=== PATIENT | female | born 1940 | race Caucasian/White ===

== ENCOUNTER → 2021-01-16 | Outpatient (CLI) | payer OTHER | END | disposition home or self-care (01) | LOC: OIH 17:23 | PROVIDERS: ATTEND Internal Medicine Cardiovascular Disease | DX: Z13.6 Encounter for screening for cardiovascular disorders (principal) | CPT/HCPCS: 75571 ==

== ENCOUNTER → 2024-04-07 | Outpatient (CLI) | payer MEDICARE | END | disposition home or self-care (01) | LOC: RAH 09:36 | PROVIDERS: ATTEND Urology | DX: N28.1 Cyst of kidney, acquired (principal) | CPT/HCPCS: 76770; 76775 ==

== ENCOUNTER → 2024-07-29 | Outpatient (CLI) | payer MEDICARE | END | disposition home or self-care (01) | LOC: RAH 12:57 | PROVIDERS: ATTEND Internal Medicine | DX: N63.21 Unspecified lump in the left breast, upper outer quadrant (principal); N64.89 Other specified disorders of breast; R92.323 Mammographic fibroglandular density, bilateral breasts; N63.0 Unspecified lump in unspecified breast | CPT/HCPCS: 76641; 77066 ==

== ENCOUNTER → 2025-07-04 | Outpatient (CLI) | payer MEDICARE ==
--- NOTE | 2025-07-04 21:06 | HMCIMG ---
EXAM: CT Chest Without IV contrast. CLINICAL HISTORY: Chronic obstructive pulmonary disease, unspecified TECHNIQUE: Axial computed tomography images of the chest without intravenous contrast. COMPARISON: None provided. FINDINGS: LUNGS: Diffuse centrilobular emphysema in both lung sue. No pulmonary nodules or infiltrates. PLEURAL SPACES: No evidence of pneumothorax. No pleural effusion. HEART: No cardiomegaly. No significant pericardial effusion. Atherocalcific changes in the arch of the aorta and coronary arteries. LYMPH NODES: No lymphadenopathy is evident. UPPER ABDOMEN: Hypodense area in the left kidney. BONES: Degenerative changes in the visualized spine. No acute osseous abnormality. IMPRESSION: 1. Diffuse centrilobular emphysema in both lungs. 2. No pulmonary nodules. LUNG RADS 1: Continue annual screening with LDCT. 3. No pulmonary infiltrates or pleural effusions. 4. Atherosclerosis and coronary artery disease. /[place]
== END | disposition home or self-care (01) ==
LOC: RAH 13:05
PROVIDERS: ATTEND Internal Medicine
DX: J43.2 Centrilobular emphysema (principal); R06.02 Shortness of breath; I25.10 Atherosclerotic heart disease of native coronary artery without angina pectoris; I70.0 Atherosclerosis of aorta; M47.814 Spondylosis without myelopathy or radiculopathy, thoracic region
CPT/HCPCS: 71250

== ENCOUNTER 2025-11-03 12:07 | Emergency (ER) | payer MEDICARE ==
[~2025-11-03] VITALS: Ht 162.6 cm; Wt 79.4 kg
[2025-11-03] MEDS: 0.9% NACL 500ML IV.SOLN 500 ML IV SCH (12:50)
[2025-11-03 13:10] LABS: IMMATURE GRANULOCYTE ABSOLUTE 0.06 K/uL (0-1); NUCLEATED RED BLOOD CELLS 0.0 % (0.0-0.19); PLATELET COUNT (AUTO) 178 K/uL (130-400); RED BLOOD CELL COUNT(AUTO) 3.70 MIL/uL (4.00-5.50); RED CELL DISTRIBUTION WIDTH 12.9 % (11.0-15.5); WHITE BLOOD COUNT (AUTO) 8.6 K/uL (4.8-10.8)
[2025-11-03 13:21] LABS: CREATININE 1.1 mg/dL (0.5-1.0); GLOMERULAR FILTR. RATE CALC 50.0 mL/min (>90); GLUCOSE,RANDOM 104.0 mg/dL (70-105); SODIUM SERUM 135.0 mmol/L (136-145); UREA NITROGEN, BLOOD 15.0 mg/dL (7-18)
[2025-11-03 13:28] LABS: ASPARTATE AMINOTRANSFERASE 13.0 U/L (10-37); CREATINE KINASE, TOTAL 87.0 U/L (21-232); TOTAL PROTEIN, SERUM 6.7 g/dL (6.0-8.3)
--- NOTE | 2025-11-03 13:33 | HMCIMG ---
EXAM: CT Head Without IV contrast. CLINICAL HISTORY: tremors TECHNIQUE: Axial computed tomography images of the head/brain without intravenous contrast. COMPARISON: None provided. FINDINGS: BRAIN: No evidence of acute hemorrhage. No mass lesion. No CT evidence for acute territorial infarct. No midline shift or extra-axial collections. Periventricular hypodensities are consistent with chronic small vessel ischemic disease. Mild global cortical atrophy with ex vacuo dilatation of the CSF spaces. VENTRICLES: No hydrocephalus. ORBITS: The orbits are unremarkable. SINUSES AND MASTOIDS: The paranasal sinuses and mastoid air cells are clear. BONES: No fracture. SOFT TISSUES: Unremarkable. IMPRESSION: No acute intracranial abnormality. /[place]
--- NOTE | 2025-11-03 15:09 | ERN ---
ED Note History of Present Illness Stated Complaint: OTHER Chief Complaint: Other Problems Time Seen by MD: 12:15 Dictation: 85-year-old female presenting to the emergency department by EMS after episode of tremors over the past few hours patient has a history of Parkinson's and reports similar episodes in the past. Patient has been taking her medications as prescribed. Allergies: Coded Allergies: No Known Drug Allergies (Unverified Allergy, Severe, 05/23/23) Past Medical History Past Medical History: Hypertension, Other Additional Past Medical Hx: PARKINSONS. Surgical History: Hysterectomy, Tonsillectomy, Other Surgical History Other: BACK SX, BLADDER LIFT. Review of System Dictation Constitutional: Negative for fever,chills, and weight loss Eyes: Negative for injury, pain,redness, and discharge ENT: Negative for injury,pain or swelling Cardiovascular: Negative for chest pain, palpitations, and edema Respiratory: Negative for shortness of breath, cough, and wheezing, Abdomen/GI: Negative for abdominal pain, nausea, vomiting, diarrhea, and constipation Back: Negative for injury and pain : Negative for injury, bleeding and discharge MS/Extremity: Negative for injury and deformity Skin: Negative for rash, and discoloration Neuro: Per HPI Initial Vital Sign VS Vital Signs Date Time Temp Pulse Resp B/P (MAP) Pulse Ox O2 Delivery O2 Flow Rate FiO2 11/03/25 12:13 98.4 108 19 148/59 98 Room Air 0 11/03/25 12:57 28 Physical Exam Dictation General: awake, alert, NAD Head/Face: Normocephalic, atraumatic Eyes: PERRL, EOMI, vision at baseline ENT: oral cavity clear, TMs clear, no signs of infection Neck: Trachea midline, supple, no nuchal rigidity Cardiovascular: RRR, normal S1/S2, No MRGs, no JVD Respiratory: CTAB, no respiratory distress, No rales or wheezes Abdomen: Soft, non-tender, non-distended, normal bowel sounds, no guarding or rebound. Skin: Warm, dry, normal turgor, no rash MS/Extremity: Pulses equal, no cyanosis, neurovascular intact, FROM Neuro: COAx4, GCS 15, strength 5/5, CN 2-12 intact, normal cerebellar exam, normal gait, Psych: Normal behavior, mood, and affect normal Results (Laboratory/Radiology) Laboratory/Radiology Laboratory Tests Test 11/03/25 13:04 White Blood Count 8.6 K/uL (4.8-10.8) Red Blood Count 3.70 MIL/uL (4.00-5.50) L Hemoglobin 11.9 g/dL (12.0-16.0) L Hematocrit 36.7 % (36-48) Mean Corpuscular Volume 99.2 fL (79-99) H Mean Corpuscular Hemoglobin 32.2 pg (27.0-33.0) Mean Corpuscular Hemoglobin Concent 32.4 g/dL (32.0-36.0) Red Cell Distribution Width 12.9 % (11.0-15.5) Platelet Count 178 K/uL (130-400) Mean Platelet Volume 9.0 fL (7.5-10.5) Immature Granulocyte % (Auto) 0.7 % (0-1) Neutrophils (%) (Auto) 85.1 % (40.0-77.0) H Lymphocytes (%) (Auto) 4.3 % (21.0-51.0) L Monocytes (%) (Auto) 9.3 % (3.0-13.0) Eosinophils (%) (Auto) 0.5 % (0.0-8.0) Basophils (%) (Auto) 0.1 % (0.0-5.0) Neutrophils # (Auto) 7.3 K/uL (1.8-7.7) Lymphocytes # (Auto) 0.4 K/uL (1.0-4.8) L Monocytes # (Auto) 0.8 K/uL (0.1-1.0) Eosinophils # (Auto) 0.04 K/uL (0.00-0.70) Basophils # (Auto) 0.01 K/uL (0.00-0.20) Absolute Immature Granulocyte (auto 0.06 K/uL (0-1) Nucleated Red Blood Cells 0.0 % (0.0-0.19) White Cell Morphology Comment See comments Sodium Level 135 mmol/L (136-145) L Potassium Level 3.7 mmol/L (3.5-5.1) Chloride Level 104 mmol/L (101-111) Carbon Dioxide Level 25 mmol/L (21-32) Blood Urea Nitrogen 15 mg/dL (7-18) Creatinine 1.1 mg/dL (0.5-1.0) H Glomerular Filtration Rate Calc 50 mL/min (>90) Random Glucose 104 mg/dL (70-105) Total Calcium 8.0 mg/dL (8.5-10.1) L Total Bilirubin 1.0 mg/dL (0.2-1.0) Direct Bilirubin 0.3 mg/dL (0.0-0.3) Aspartate Amino Transf (AST/SGOT) 13 U/L (10-37) Alanine Aminotransferase (ALT/SGPT) 7 U/L (12-78) L Alkaline Phosphatase 102 U/L (50-136) Total Creatine Kinase 87 U/L (21-232) Troponin I High Sensitivity 7 ng/L (4-50) Total Protein 6.7 g/dL (6.0-8.3) Albumin 3.0 g/dL (3.5-5.0) L Labs Reviewed?: Yes EKG: (+) NSR, (+) rhythm, (+) nonspecific ST T wave chg, (+) nonspecific ST T wave chg, (+) unchanged ED Course ED Course Orders Procedure Category Date Status Time 12 Lead Ekg Tracing- EKG 11/03/25 Logged Technical 12:32 Basic Metabolic Panel LAB 11/03/25 Complete 12:32 Cbc With Differential LAB 11/03/25 Complete 12:32 Hepatic Function Panel LAB 11/03/25 Complete 12:32 Creatine Kinase, Total LAB 11/03/25 Complete 12:32 Troponin I High LAB 11/03/25 Complete Sensitivity 12:32 Ct Head/Brain W/O CT 11/03/25 Resulted Contrast 12:32 Diazepam 5 Mg/Ml 2 Ml PHA 11/03/25 In Process Syg (Valium 5 Mg/M 12:32 0.9% Nacl 500ml PHA 11/03/25 In Process Iv.Soln (Ns 500ml 13:00 Current Medications Medications (Trade) Dose Ordered Sig/Samir Route PRN Reason Start Time Stop Time Status Last Admin Dose Admin Diazepam (VALium 5 MG/ML 2 ML SYG) 5 mg ONCE IV 11/03/25 12:32 11/03/25 17:30 11/03/25 12:50 Sodium Chloride 500 ml @ 0 mls/hr ONCE IV 11/03/25 13:00 11/04/25 12:59 11/03/25 12:50 Vital Signs Date Time Temp Pulse Resp B/P (MAP) Pulse Ox O2 Delivery O2 Flow Rate FiO2 11/03/25 14:03 99.9 75 25 96/54 97 Nasal Cannula* 2 28 11/03/25 12:57 101.1 92 16 121/65 94 Nasal Cannula* 2 28 11/03/25 12:13 98.4 108 19 148/59 98 Room Air 0 Medical Decision Making MDM MDM: Differential diagnosis: Rationale: Tests considered and ordered secondary to shared decision making include: Previous outside records reviewed: Old ER visits. Risk of complication and/or morbidity or mortality of patient management: None Medications-Per medication reconciliation Need for hospitalization: Patient does not meet criteria for hospitalization. Need for emergency major/minor surgery: No There are no social concerns with this patient. Prescription drug management Prescriptions will include symptomatic care Patient's prior external medical records from other ER visits were reviewed by me as indicated. Prior testing and results from previous visits were reviewed. Prior tests were taken into account with medical decision making and resource utilization, independent historian/historians were used to obtain complete medical history. I independently interpreted the test that were performed, results were reviewed by me and considered findings on radiology if ordered. Medical management and examination interpretation discussions were had by me with other qualified healthcare professionals as indicated for the patient's care. 85-year-old female with tremors, stable exam, CT of the head was negative symptoms improved with Valium patient wants to go home vital signs all stable and has been at bedside. DX & DISP Disposition: Discharge Departure Impression: Primary Impression: Tremor Condition: Stable Referrals: SHAMEKA RYAN MD (PCP) TICO VALENCIA MD Nov 03, 2025 15:09
[2025-11-03 15:10] VITALS: BP 100/60; PULSE 83; RESP 22; TEMP 99.8; O2SAT 96
--- NOTE | 2025-11-03 15:10 | NUR ---
PT STATES "FEELING MUCH BETTER AND LESS TREMBLY". SHE AMBULATE TO DISCHARGE WITH A STEADY GAIT.
--- NOTE | 2025-11-04 11:09 | EKG ---
[facility] Test Date: 2025-11-03 Test Time: 12:30:06 Pat Name: ROSHAN NAIDU Department: ED Room: Gender: F Manager Zone: [id number] : [id number] Requested By: TICO VALENCIA Order Number: [id number] Reading MD: Gayle Meraz Measurements Intervals [place] Rate: 93 P: 46 HI: 120 QRS: 74 QRSD: 71 T: 73 QT: 342 QTc: 425 Interpretive Statements Sinus rhythm No previous ECG available for comparison Electronically Signed On 11-07-2025 08:50:52 [employer] by Gayle Meraz Please click the below link to view image of tracing.
== END 2025-11-03 15:25 | disposition home or self-care (01) ==
LOC: EDH 12:07
DX: G20.A1 Parkinson's disease without dyskinesia, without mention of fluctuations (principal); I10 Essential (primary) hypertension; Z90.710 Acquired absence of both cervix and uterus; Z90.89 Acquired absence of other organs
CPT/HCPCS: 99285; 96374; 70450; 82550; 80076; 84484; 80048; 85025; 36415; 93005; J7040; J3360